=== PATIENT | female | born 1945 | race Caucasian/White ===

== ENCOUNTER 2022-02-08 06:43 | Day surgery (SDC) | payer MEDICARE, MEDICAID ==
[2022-02-07 11:38] LABS: COVID AG,FIA SOURCE NASOPHARYNGEAL
[~2022-02-08] VITALS: Ht 142.2 cm; Wt 49.1 kg
[~2022-02-08 06:43] MED LIST: ASPI-1450 PO; COLC0.6T73 PO; FOLI-130 PO; HYDR25TA2 PO; LEVO100 PO; LORA10TA7 PO; MYCO250C27 PO; SODIUM CHLORIDE 0.9% 1,000 ML ONE
[2022-02-08] MEDS ORDERED: PROPOFOL 1% 20 ML VIAL IVP ONE (06:44)
[2022-02-08] MEDS ORDERED: SODIUM CHLORIDE 0.9% 1,000 ML IV ONE (07:00)
== END 2022-02-08 10:00 | disposition home or self-care (01) ==
LOC: SURGERY 06:43
PROVIDERS: ATTEND Internal Medicine Gastroenterology
DX: K21.00 Gastro-esophageal reflux disease with esophagitis, without bleeding (principal); K29.50 Unspecified chronic gastritis without bleeding; K44.9 Diaphragmatic hernia without obstruction or gangrene; D64.9 Anemia, unspecified; K29.80 Duodenitis without bleeding; E11.9 Type 2 diabetes mellitus without complications; Z98.890 Other specified postprocedural states; Z79.899 Other long term (current) drug therapy; Z88.0 Allergy status to penicillin
CPT/HCPCS: 43239; 87426; C9803; J2704; J7030

== ENCOUNTER 2022-04-04 09:00 | Day surgery (SDC) | payer MEDICARE, MEDICAID ==
[~2022-04-04] VITALS: Ht 127 cm; Wt 49.0 kg
[~2022-04-04 09:00] MED LIST changes: +SODIUM CHLORIDE 0.9% 1,000 ML IV ONE
[2022-04-04] MEDS ORDERED: LIDOCAINE/PF 2% 5 ML VIAL IM ONE (09:01)
[2022-04-04] MEDS ORDERED: PROPOFOL 1% 20 ML VIAL IVP ONE (09:01)
[2022-04-04 09:34] LABS: COVID AG,FIA SOURCE NASOPHARYNGEAL
== END 2022-04-04 12:55 | disposition home or self-care (01) ==
LOC: SURGERY 09:00
PROVIDERS: ATTEND Internal Medicine Gastroenterology
DX: D64.9 Anemia, unspecified (principal); K63.5 Polyp of colon; K57.30 Diverticulosis of large intestine without perforation or abscess without bleeding; I10 Essential (primary) hypertension; K64.0 First degree hemorrhoids; Z88.0 Allergy status to penicillin; D50.9 Iron deficiency anemia, unspecified; Z79.899 Other long term (current) drug therapy; Z98.890 Other specified postprocedural states; Z86.010 Personal history of colon polyps; Z79.1 Long term (current) use of non-steroidal anti-inflammatories (NSAID)
CPT/HCPCS: 45385; 87426; 88305; C1769; J2704; J3490; J7030; C9803

== ENCOUNTER 2023-01-10 12:31 | Emergency (ER) | payer MEDICARE, MEDICAID ==
[~2023-01-10] VITALS: Ht 147.3 cm; Wt 49.0 kg
[~2023-01-10 12:31] MED LIST changes: +HYDR-4870 PO; -HYDR25TA2 PO; -MYCO250C27 PO; -SODIUM CHLORIDE 0.9% 1,000 ML IV ONE; -SODIUM CHLORIDE 0.9% 1,000 ML ONE
[2023-01-10 12:34] VITALS: BP 142/87
[2023-01-10] MEDS ORDERED: TRANEXAMIC ACID 1,000 MG/10 ML VIAL TP ONE (13:15)
[2023-01-10] MEDS ORDERED: BACITRACIN 0.9 GM PACKET OINTMENT TP ONE (13:15)
[2023-01-10] MEDS ORDERED: LIDOCAINE 1%/EPI 1:200,000/PF 30 ML VIAL SQ ONE (13:15)
== END 2023-01-10 14:55 | disposition home or self-care (01) ==
LOC: EMS 12:36
DX: L76.22 Postprocedural hemorrhage of skin and subcutaneous tissue following other procedure (principal); I10 Essential (primary) hypertension; E03.9 Hypothyroidism, unspecified; Z88.0 Allergy status to penicillin
CPT/HCPCS: 99283; J3490 ×2